=== PATIENT | female | born 2000 ===

== ENCOUNTER 2018-11-05 23:17 | Emergency (ER) | payer BC ==
[2018-11-05] MEDS ORDERED: Sodium Chloride 0.9% 10 ML Syringe FLUSH PRN (23:21)
[2018-11-05] MEDS ORDERED: EPINEPHrine 1 MG/ML SDV IM ONE (23:21)
[2018-11-05] MEDS ORDERED: methylPREDNISolone Sodium Succinate 125 MG/2 ML SDV IV ONE (23:22)
[2018-11-05] MEDS ORDERED: diphenhydrAMINE 50 MG/ML SDV IVPUSH ONE (23:22)
--- NOTE | 2018-11-06 06:41 | EDM.PDOC ---
ED HPI GENERAL MEDICAL PROBLEM - General Chief Complaint: Allergic Reaction Stated Complaint: Allergic Reaction Time Seen by Provider: 11/05/18 23:30 - History of Present Illness INITIAL COMMENTS - FREE TEXT/NARRATIVE: Pt. presents to ER with complaints of allergic reaction. She states that she is not sure what caused it and has not taken any new medication of consumed any new type of food. No new detergents or soaps. She states that the symptoms started this past afternoon and are comprised for rash and facial swelling. No difficulty with swallowing. No breathing difficulty. Pt. denies any nausea or vomiting. No chest pain. States that she has issues with hay fever and pervious allergies to insect bites as a child. Onset: Today Onset Date: 11/06/18 Location: Reports: Face, Generalized Abdominal Pain Score (Numeric/FACES): 2 - Related Data Allergies Allergy/AdvReac Type Severity Reaction Status Date / Time Sulfa (Sulfonamide Allergy Anaphylactic Verified 11/05/18 23:18 Antibiotics) Shock Home Meds: Home Meds . [Unable to Verify Home Med List] 11/06/18 [History] Past Medical History Gastrointestinal History: Reports: Irritable Bowel Syndrome Psychiatric History: Reports: Anxiety, Depression - Past Surgical History HEENT Surgical History: Reports: Myringotomy w Tube(s), Other (See Below) Other HEENT Surgeries/Procedures: [place] Teeth removal Social & Family History - Tobacco Use Smoking Status *Q: Never Smoker - Recreational Drug Use Recreational Drug Use: No ED ROS GENERAL - Review of Systems Review Of Systems: See Below Constitutional: Reports: No Symptoms HEENT: Reports: Other (swelling to lips and nose) Respiratory: Reports: No Symptoms Cardiovascular: Reports: No Symptoms Endocrine: Reports: No Symptoms GI/Abdominal: Reports: No Symptoms : Reports: No Symptoms Musculoskeletal: Reports: No Symptoms Skin: Reports: Rash, Urticaria Neurological: Reports: No Symptoms Psychiatric: Reports: No Symptoms Hematologic/Lymphatic: Reports: No Symptoms Immunologic: Reports: No Symptoms ED EXAM, GENERAL - Physical Exam Exam: See Below Exam Limited By: No Limitations General Appearance: Alert, WD/WN, No Apparent Distress Eye Exam: Bilateral Eye: EOMI, PERRL Ears: Normal External Exam, Normal Canal, Hearing Grossly Normal, Normal TMs Ear Exam: Bilateral Ear: Auricle Normal, Canal Normal, TM normal Nose: Normal Mucosa, No Blood, Other (edema noted to nose) Throat/Mouth: Normal Teeth, Normal Gums, Normal Oropharynx, Other (edema to lips ) Head: Atraumatic, Normocephalic Neck: Normal Inspection, Supple, Non-Tender, Full Range of Motion Respiratory/Chest: No Respiratory Distress, Lungs Clear, Normal Breath Sounds, No Accessory Muscle Use, Chest Non-Tender Cardiovascular: Normal Peripheral Pulses, Regular Rate, Rhythm, No Edema, No Gallop, No JVD, No Murmur, No Rub GI/Abdominal: Normal Bowel Sounds, Soft, Non-Tender, No Organomegaly, No Distention, No Abnormal Bruit, No Mass (Female) Exam: Deferred Rectal (Female) Exam: Deferred Back Exam: Normal Inspection, Full Range of Motion, NT Extremities: Normal Inspection, Normal Range of Motion, Non-Tender, Normal Capillary Refill, No Pedal Edema Neurological: Alert, Oriented, CN II-XII Intact, Normal Cognition, Normal Gait, Normal Reflexes, No Motor/Sensory Deficits Psychiatric: Anxious, Tearful Skin Exam: Warm, Dry, Intact, Normal Color, No Rash Course - Vital Signs Last Recorded V/S: Last Vital Signs Temp 36.9 C 11/05/18 23:20 Pulse 96 11/05/18 23:48 Resp 14 11/05/18 23:48 BP 143/92 H 11/05/18 23:48 Pulse Ox 98 11/05/18 23:48 - Orders/Labs/Meds Orders: Active Orders 24 hr Category Date Time Status Peripheral IV Insertion Adult [OM.PC] Routine Oth 11/05/18 23:21 Ordered Meds: Medications Discontinued Medications Generic Name Dose Route Start Last Admin Trade Name Andriy PRN Reason Stop Dose Admin Diphenhydramine HCl 25 mg 11/05/18 23:22 11/05/18 23:36 Benadryl IVPUSH 11/05/18 23:23 25 mg ONETIME ONE Administration Epinephrine HCl 0.3 mg 11/05/18 23:21 11/05/18 23:27 Adrenalin IM 11/05/18 23:22 0.3 mg ONETIME ONE Administration Methylprednisolone Sodium Succinate 125 mg 11/05/18 23:22 11/05/18 23:36 Solu-Medrol IV 11/05/18 23:23 125 mg ONETIME ONE Administration Sodium Chloride 10 ml 11/05/18 23:21 Saline Flush FLUSH ASDIRECTED PRN Keep Vein Open Departure - Departure Time of Disposition: 00:15 Disposition: Home, Self-Care 01 Clinical Impression: Allergic reaction - Discharge Information Instructions: Anaphylactic Reaction, Adult, Diphenhydramine capsules or tablets , Prednisone tablets Referrals: PCP,Not In Area [Primary Care Provider] - Forms: ED Department Discharge Additional Instructions: Prednisone 40mg once daily for 5 days starting tomorrow Benadryl 50mg every 4-6 hours as needed for itching Keep a diary of the foods you eat Follow-up in clinic in 10-14 days if not gradually improving - My Orders Last 24 Hours: My Active Orders 11/05/18 23:21 Peripheral IV Insertion Adult [OM.PC] Routine - Assessment/Plan Last 24 Hours: My Active Orders 11/05/18 23:21 Peripheral IV Insertion Adult [OM.PC] Routine Plan: Prednisone 40mg once daily for 5 days starting tomorrow Benadryl 50mg every 4-6 hours as needed for itching Keep a diary of the foods you eat Follow-up in clinic in 10-14 days if not gradually improving
== END 2018-11-06 00:15 | disposition home or self-care (01) ==
LOC: VM.ED 23:17
DX: T78.40XA Allergy, unspecified, initial encounter (principal); F41.9 Anxiety disorder, unspecified; F32.9 Major depressive disorder, single episode, unspecified; Z88.2 Allergy status to sulfonamides
CPT/HCPCS: 96372; 96374; 96375; 99283-25; J0171; J1200; J2930